=== PATIENT | female | born 1945 | race Hispanic/Latino ===

== ENCOUNTER 2016-07-03 06:04 | Inpatient (IN) | payer OTHER ==
[~2016-07-03] VITALS: Ht 160 cm; Wt 101.1 kg
[~2016-07-03 06:04] MED LIST: ACETAMINOPHEN650 M7 PO; BENADRYL25 MG PO; COUMADIN3 MG PO; DOCUSATE SODIU100 MG PO; ENBREL25 MG/0.5 SC; FEMARA2.5 MG PO; FEOSOL325 MG PO; GABAPENTIN100 MG PO; IRON325 MG PO; K-DUR20 MEQ PO; LABETALOL HCL100 MG PO; LABETALOL HCL300 MG PO; LASIX20 MG PO; LEVO-T150 MCG PO; METOPROLOL TART25 MG PO; MIRALAX17 GM PO; NOHOMEMEDS; NORMODYNE,TRAN200 MG PO; NORMODYNE200 MG PO; NUCYNTA50 MG PO; OXYCODONE HCL5 M1 PO; PERCOCET 10/1 TABLET PO; PERCOCET 5/31 TABLET PO; SENNA-TIME S T1 EACH PO; THERAGRAN1 TABLET PO; VALIUM5 MG PO; VICODIN 5-3001 EACH PO; VITAMIN B-625 MG PO
[2016-07-03 06:52] VITALS: BP 143/64
[2016-07-03 11:02] VITALS: BP 178/74
[2016-07-03 13:04] VITALS: BP 118/52
[2016-07-03 15:27] VITALS: BP 120/58
[2016-07-03 17:00] VITALS: BP 162/104
[2016-07-03 20:18] VITALS: BP 178/71
[2016-07-04 00:21] VITALS: BP 148/66
[2016-07-04 04:18] VITALS: BP 149/67
[2016-07-04 06:05] LABS: HEMATOCRIT 34.4 % (36.0-46.0); MCV 90.3 FL (83-99)
[2016-07-04 06:24] LABS: ANION GAP 12 MEQ/L (2-14); CHLORIDE 102 MEQ/L (99-109); GFR ESTIMATE (CALCULATED) > 59 mL/min/; GLUCOSE 115 mg/dL (70-99); SAMPLE HEMOLYSIS CHECK 0; SAMPLE ICTERIC CHECK 0; SAMPLE LIPEMIA CHECK 0; SODIUM 136 MEQ/L (136-147); UREA NITROGEN (BUN) 9 mg/dL (9-23)
[2016-07-04 08:00] VITALS: BP 148/63
[2016-07-04 12:16] VITALS: BP 148/67
[2016-07-04 15:45] VITALS: BP 146/65
[2016-07-04 20:24] VITALS: BP 142/65
[2016-07-05] VITALS (8 sets, daily range): BP systolic 124–175; BP diastolic 56–70
[2016-07-05 04:59] LABS: HEMATOCRIT 30.5 % (36.0-46.0)
[2016-07-06 08:01] VITALS: BP 190/72
[2016-07-06] MEDS ORDERED: BENADRYL25 MG PO (09:20)
[2016-07-06] MEDS ORDERED: SENNA PLUS TAB1 EACH PO (09:21)
[2016-07-06] MEDS ORDERED: TYLENOL REGULA325 MG PO (09:21)
[2016-07-06] MEDS ORDERED: OXYCONTIN10 MG PO (09:22)
[2016-07-06] MEDS ORDERED: OXYCODONE HCL5 MG PO (09:22)
[2016-07-06] MEDS ORDERED: CELECOXIB200 MG PO (09:22)
[2016-07-06] MEDS ORDERED: XARELTO10 MG PO (09:22)
[2016-07-06 12:33] VITALS: BP 157/70
== END 2016-07-06 13:38 | DRG 470 ==
LOC: 3WEST 06:04 → 2SOUTH 06:04 → 3WEST 11:05 → 2SOUTH 12:32 → SDC 13:19 → EDSTATUS 13:24 → 2SOUTH 13:26 → 3WEST 07-05 07:36 → 3EAST 07-05 17:40
PROVIDERS: Orthopaedic Surgery
PROC: 0SRC0J9 Replacement of Right Knee Joint with Synthetic Substitute, Cemented, Open Approach (ICD-10-PCS; principal; 2016-07-03)
DX: M17.11 Unilateral primary osteoarthritis, right knee (principal); I10 Essential (primary) hypertension; E03.9 Hypothyroidism, unspecified; L40.9 Psoriasis, unspecified; M62.81 Muscle weakness (generalized); G89.18 Other acute postprocedural pain; M25.561 Pain in right knee; Z85.3 Personal history of malignant neoplasm of breast; Z96.652 Presence of left artificial knee joint
CPT/HCPCS: 71010; 80048; 85014; 85018; C1713; J0131; J0330; J0461; J0690; J1885; J2250; J2300; J2405; J2710; J2765; J3010; J7050; J7120; L1820